=== PATIENT | male | born 1990 | race African-American/Black ===

== ENCOUNTER 2018-10-01 11:26 | Emergency (ER) | payer BC ==
[~2018-10-01] VITALS: Ht 170.2 cm; Wt 63.0 kg
[2018-10-01] MEDS ORDERED: KETOROLAC 30MG/ML VIAL IM ONE ×2 (14:15→15:45)
[2018-10-01] MEDS ORDERED: CYCLOBENZAPRINE 10MG TABLET PO ONE (14:15)
[2018-10-01 15:45] VITALS: BP 130/90
== END 2018-10-01 17:33 | disposition home or self-care (01) ==
LOC: ER 11:26
DX: M79.605 Pain in left leg (principal); M54.9 Dorsalgia, unspecified; F12.10 Cannabis abuse, uncomplicated; F17.200 Nicotine dependence, unspecified, uncomplicated; Z98.890 Other specified postprocedural states
CPT/HCPCS: 73522; 96372; 99283; J1885